=== PATIENT | male | born 1990 | race Caucasian/White ===

== ENCOUNTER → 2024-07-15 | Outpatient (CLI) | payer BC ==
[2024-07-15 14:15] VITALS: BP 152/77; PULSE 71; RESP 16
--- NOTE | 2024-07-15 14:56 | P.PAINPG ---
PQRS Measure Charge Sheet Comment: HISTORY OF PRESENT ILLNESS: A 33 yr old male w at side as a referral from Dr Harvey presents today w severe and chronic neck pain > 3 mo secondary to radiculopathy, spondylosis and facet arthropathy without myelopathy for evaluation. Pt states pain level is provoked at 5-6 /10 in intensity, constant, localized in the cervical spine, predominantly axial, dull in character w occasional shooting pain towards the head w hand tingling. Pain is provoked by hyperextension and lifting. Pain is alleviated by chiropractic treatments semi monthly x 3 mo which ended in Apr 2024, physician guided home exercises 3-4 times weekly since Apr 2024, heat, ice, medications (Venetie 5/325mg), topical BioFreeze, repositioning and rest . Cervical disability score at 8. PMH: OA, Asthma, HTN, MDD PSH: Septoplasty (2023), Appendectomy SH: Former tobacco user (Quit 2019), No ETOH abuse, No illicit drug use FH: Non contributory All: See list Meds: See list REVIEW OF ORGAN SYSTEMS: CONSTITUTIONAL: No fevers or chills. No recent weight loss. NEUROLOGICAL: + numbness and tingling along the distal extremities. No seizure disorders or headaches. MUSCULOSKELETAL: + pain PSYCHIATRIC: Denies current depression or suicidal thought s. Physical Examinations : Constitutional : Cooperative , not in acute distress . Neurologic : Cranial nerve II to XII intact. No focal neurological deficits. Psychiatric : alert & oriented x 3. Matching mood & appropriate affect. Judgment & insight intact. Musculoskeletal : Cervical Spine Motor strength in the deltoid and biceps: Normal right side. Normal Left side Motor strength biceps and the wrist extensors: Normal right side . Normal left side Motor strength in the triceps muscle: Normal right side. Normal left side Deep tendon reflexes: Normal at the biceps. Normal at Brachioradialis. Normal at triceps Vertebral body tenderness to deep palpation over C7 Taut bands w twitch response over BL C2-T2 Cervical facet loading test: positive bilaterally Spurling test: positive bilaterally Neck distraction test: positive BL C7- T1 Karen sign: positive bilaterally Lumbar spine Motor strength lower extremities ,thigh and legs 5/5 Right side , 5/5 Left side Deep tendon reflexes : Normal Knee Jerk. Normal Ankle Jerk Vertebral body tenderness over Allen Test positive Lumbar facet Loading Test: positive Right / positive Left Range of motion of the lumbar spine Flexion 30 degrees, extension 10 degrees Straight Leg Raise test: Left/ Right positive at degrees Rg test: positive right / positive left. Severe tenderness over the Sacroiliac joint on the Right / Left sides Gaenslen test: positive bilaterally Seated flexion test: positive bilaterally. Sacral spine : Severe tenderness over the Sacroiliac joint: right side / left side Range of motion: Flexion of the lumbar spine <60 degrees Range of motion: Extension of the lumbar spine <20 degrees Gaenslen's Test positive Rg test: positive right side / left side Thigh Thrust Test Sacral Thrust Test Imaging: MRI non contrast cervical spine from 11/19/23 reviewed Assessment/ Plan : Cervical radiculopathy Recommendation of BL TPIs C2-T2 #1. Would benefit from PT integrated w traction of cervical spine x 6 wks M54.12 . Risks, benefits of procedure discussed and patient verbalized understanding. Admits to anti- coagulant use or medical history of diabetes. Protocol for discontinuation/ continuation of medications jonathan procedure discussed. All questions answered. I have spent greater than 30 minutes on patient care today. Dr Lagunas was available by phone for the evaluation of this patient. The time was used to review the medical records including relevant urine studies and Prescription history (MAPs), review of the available imaging, evaluation and examination of the patient, coordination of care with the medical staff and if applicable referring physicians, as well as creation of the medical record - Pain Location Neck Non-Pharmacological Interventions: Chiropractic Treatment, Heat, Ice Pharmacological Interventions: Scheduled Medication, Topical Medication Home Medications: Ambulatory Orders HYDROcodone/APAP 5-325MG [Venetie 5-325] 0.5 tab PO DAILY 09/21/23 PARoxetine HCL 40 mg PO DAILY 09/21/23 lisinopriL 30 mg PO DAILY 09/21/23 diazePAM [Valium] 5 mg PO DAILY PRN 1 Days #2 tab 07/15/24 Controlled Substance Measures - Controlled Substance Measures Is patient prescribed a controlled substance at discharge?: Yes When asked, does pt state using other controlled substances?: No If prescribed controlled substance>3 days was MAPS reviewed?: Prescribed <3 Days
== END ==
LOC: PNWHC3 13:45
PROVIDERS: ATTEND Specialist
DX: M47.22 Other spondylosis with radiculopathy, cervical region (principal)
CPT/HCPCS: 99211